=== PATIENT | male | born 1970 | race Caucasian/White ===

== ENCOUNTER → 2019-02-02 | Day surgery (SDC) | payer BC ==
[~2019-02-02] MED LIST: ACETAMINOPHEN 1000 MG/100 ML IV ONE; ACETAMINOPHEN/CODEINE 300MG - 30MG TAB ONE; BUPIVACAINE HCL 0.5% INJ 30 ML VIAL INJ ONE; BYSTOLIC2.5 MG; CEFAZOLIN SOD 1 GM/NS 50ML 50 ML IV ONE; DEXAMETHASONE SOD PHOS INJ 4 MG/ML VIAL ONE; FENTANYL CITRATE/PF 100MCG/2 ML INJ ONE; KETOROLAC TROMETHAMINE 30 MG/ML VIAL ONE; LIDOCAINE HCL 2% LOCAL INJ 5 ML SDV VIAL INJ ONE; MIDAZOLAM HCL 2 MG/2 ML VIAL ONE; MUPIROCIN 2% OINT 22 GM TUBE ONE; ONDANSETRON HCL INJ 2MG/ML 2ML 2 MG/ML VIAL ONE; PROPOFOL IV EMULSION 10 MG/ML 20 ML VIAL ONE; SEVOFLURANE INHAL SOLN 250 ML PEN BTL ONE
[2019-02-02 09:13] VITALS: BP 147/82
--- NOTE | 2019-02-02 18:46 | Operative Report ---
DATE OF PROCEDURE: 02/02/2019 SURGEON: Eloy Young MD PREOPERATIVE DIAGNOSES: 1. Cubital tunnel syndrome, left side. 2. Carpal tunnel syndrome, left side. POSTOPERATIVE DIAGNOSES: 1. Cubital tunnel syndrome, left side. 2. Carpal tunnel syndrome, left side. 3. Flexor tenosynovitis, left wrist. PROCEDURES: 1. Left ulnar nerve transposition. 2. Flexor pronator muscle flap. 3. Left open carpal tunnel release. 4. Flexor tenosynovectomy, left wrist. ANESTHESIA: General. HISTORY: The patient is a 49-year-old male with EMG-proven left cubital tunnel syndrome and left carpal tunnel syndrome. The risks, benefits, and alternatives of treatment were discussed with the patient, and they are prepared to undergo the procedures outlined. DESCRIPTION OF PROCEDURE: The patient was brought to the operating theater and after the induction of adequate general inhalation anesthesia was prepped and draped in a supine position. A timeout was performed by the entire operating room team. An incision was marked out from the medial epicondyle extending both proximally and distally for approximately 4-5 cm in the left limb. The left upper extremity was exsanguinated, and the tourniquet was inflated to a pressure of 250 mmHg. The incision was made through the skin and subcutaneous tissues, and all venous tributaries were controlled using the electrocautery. The incision was deepened through the subcutaneous tissue, and all the sensory, medial, antebrachial and cutaneous branches that were identified were protected and preserved throughout the dissection. At this point, the dissection was continued directly onto the medial epicondyle. The skin and subcutaneous tissues were then elevated off the medial epicondyle and the flexor pronator muscle mass. Proximal to the medial epicondyle the intramuscular septum was identified, and the ulnar nerve was identified just posterior to the intramuscular septum. The overlying tissue over the ulnar nerve was gently incised, taking care to protect and preserve the ulnar nerve. With the ulnar nerve in site, the overlying tissue was incised from proximal to distal through the cubital tunnel releasing the compressing structures of the ulnar nerve. At the distal aspect of the cubital tunnel, the flexor pronator muscle mass was divided, and the dissection of the ulnar nerve continued until the 1st and 2nd muscular branches were identified. At this point, the medial epicondyle was marked out and an incision approximately 1.5 cm from the epicondyle was made through the fascial and muscular tissues using the electrocautery. Hemostasis was made absolute using the electrocautery. The entire flexor pronator muscle mass was elevated out of its bed in order to allow transposition of the nerve. The nerve was then gently elevated out of the cubital tunnel using a [place] drain for traction. The posterior attachments were released, and the nerve was then transposed anteriorly. The transposition was noted to provide adequate relief of tension from the compressing structures on the nerve. The medial intramuscular septum was excised from the medial epicondyle and for a distance of several centimeters proximally in order to prevent compression. With the nerve transposed submuscularly, the elbow was placed through a range of motion and there was noted to be good gliding of the nerve and no kinking or acuity throughout its course. At this point, the flexor pronator muscle mass was repaired to the cuff of tissue on the medial epicondyle using 2-0 Vicryl in an interrupted horizontal mattress fashion. The elbow was placed through a range of motion again and the nerve was visualized and there was noted to be no compression. A 2.5 cm incision was marked out in the intrathenar space. The incision was deepened through the palmar fascia until the transverse carpal ligament was identified. The ligament was sharply sectioned, taking care to protect and preserve the median nerve underlying it. After the complete width of the ligament had been transected, the distal volar forearm fascia was divided under direct view. Proliferative flexor tenosynovium was noticed to encompass the median nerve and this was radically excised. After performing this maneuver, the nerve was noted to lie adequately decompressed. The wound was then copiously irrigated with bacteriostatic saline and closed in layers. A 4-0 Vicryl was used in an interrupted buried fashion to approximate the deep dermis and 5-0 nylon was used in an interrupted horizontal mattress fashion. A Marcaine field block was performed at the operative site. The tourniquet was deflated. All the fingers pinked up nicely and a sterile bulky conforming bandage was applied from the axilla to the hand. A fiberglass splint was fashioned to maintain the elbow at approximately 90 degrees of flexion and this was held in place with a loosely wrapped Keenan wrap. The estimated blood loss of the procedure was negligible. The patient tolerated the procedure well and was brought to the recovery room in satisfactory condition and discharged with a postoperative instruction sheet as well as a followup appointment. MD LUX Craft/REBEKAH /[id number]
== END | disposition home or self-care (01) ==
LOC: OR 05:30
PROVIDERS: ATTEND Plastic Surgery
DX: G56.22 Lesion of ulnar nerve, left upper limb (principal); G56.02 Carpal tunnel syndrome, left upper limb; M65.832 Other synovitis and tenosynovitis, left forearm; I10 Essential (primary) hypertension; K21.9 Gastro-esophageal reflux disease without esophagitis; F17.210 Nicotine dependence, cigarettes, uncomplicated
CPT/HCPCS: 25115; 64718; J0131; J0690; J1100; J1885; J2001; J2250; J2405; J2704; J3010